=== PATIENT | male | born 1940 | race Two or more races ===

== ENCOUNTER 2023-07-08 22:01 | Emergency (ER) | payer OTHER ==
[~2023-07-08] VITALS: Ht 185.4 cm; Wt 90.7 kg
[2023-07-08] MEDS ORDERED: traMADol HCL 50 MG TAB PO ONE (23:30)
[2023-07-09 00:46] VITALS: BP 146/74; PULSE 84; RESP 18; TEMP 98.2; O2SAT 98
== END 2023-07-09 00:51 | disposition home or self-care (01) ==
LOC: EDBD 22:01 → ER 22:01
DX: S40.011A Contusion of right shoulder, initial encounter (principal); I10 Essential (primary) hypertension; E78.5 Hyperlipidemia, unspecified; J44.9 Chronic obstructive pulmonary disease, unspecified; I48.91 Unspecified atrial fibrillation; Z98.890 Other specified postprocedural states; Z87.891 Personal history of nicotine dependence; W01.0XXA Fall on same level from slipping, tripping and stumbling without subsequent striking against object, initial encounter; Y93.01 Activity, walking, marching and hiking; Y92.89 Other specified places as the place of occurrence of the external cause; Y99.8 Other external cause status
CPT/HCPCS: 73030